=== PATIENT | female | born 1995 | race Caucasian/White ===

== ENCOUNTER 2017-04-22 15:07 | Emergency (ER) | payer MEDICAID, OTHER ==
[~2017-04-22] VITALS: Ht 154.9 cm; Wt 53.0 kg
[~2017-04-22 15:07] MED LIST: NOVOLOGP2 SQ
[2017-04-22 15:09] VITALS: BP 134/92; PULSE 112; RESP 14; TEMP 97.9; O2SAT 100
[2017-04-22] MEDS ORDERED: HYDR-3516 PO (15:44)
[2017-04-22] MEDS ORDERED: NOVOLOGP2 SQ (15:44)
[2017-04-22] MEDS ORDERED: LANTUS2P SQ (15:44)
[2017-04-22] MEDS ORDERED: IBUP-232 PO (15:44)
[2017-04-22] MEDS ORDERED: NIFE1TAB85 PO (15:44)
[2017-04-22] MEDS ORDERED: SODIUM CHLOR 0.9% 1000 ML INJ 1,000 ML IV SCH (15:49)
[2017-04-22] MEDS ORDERED: ONDANSETRON HCL 4 MG/2 ML VIAL IV PUSH ONE (16:00)
--- NOTE | 2017-04-22 16:05 | PD ---
HPI Chief Complaint: Chest Pain Time Seen by Provider: 15:24 Travel History International Travel<30 days: No Contact w/Intl Traveler<30days: No Traveled to known affect area: No History of Present Illness HPI 22-year-old female presents for evaluation. She reports a 4 weeks ago she underwent vaginal delivery at [facility]. For the past 4 weeks she has been having pain in the left foot plantar aspect that radiates into the left. Pain is a sharp pain which is constant but worse when walking. Over the past week she has been experiencing pain in her pelvic region with associated vaginal bleeding. She reports that she has been passing large clots. She denies any nausea, vomiting, chest pain, shortness of breath, fevers, chills, cough, congestion, flank pain. She has had difficulty with urination. She has no other complaints at this time. PFSH Past Medical History Blood Disorders: No Anxiety: Yes Depression: Yes Cardiovascular Problems: Yes (HTN) Developmental Delay: No Diabetes: Yes Patient Takes Glucophage: No Diminished Hearing: No Gastrointestinal Disorders: No Genitourinary: No Headaches: Yes Musculoskeletal: No Neurologic: Yes Psychiatric: Yes Respiratory: No Integumentary: Yes Immunizations Current: Yes ?: Not : 1 Para: 1 Ovarian Cysts: Yes Past Surgical History Tympanostomy Tube: Yes Other Surgery: No Social History Alcohol Use: Yes (SOCIALLY) Tobacco Use: Yes (1 1/2PPD) Substance Use: No Allergies-Medications (Allergen,Severity, Reaction): Coded Allergies: No Known Allergies (Verified Adverse Reaction, Unknown, 04/22/17) Reported Meds & Prescriptions Reported Meds & Active Scripts Active Percocet (Oxycodone-Acetaminophen) 5-325 mg Tab 1 Tab PO Q6H PRN Reported Ibuprofen 600 Mg Tab 600 Mg PO Q8H PRN Hydrocodone-Acetamin 5-325 mg (Hydrocodone/Acetaminophen) 5 Mg-325 Mg Tablet 1 Tab PO Q6HR PRN Lantus Inj (Insulin Glargine) 1,000 Unit/10 Ml Vial 17 Units SQ HS Novolog Inj (Insulin Aspart) 1,000 Unit/10 Ml Vial 0 SQ DIRECTED Sliding Scale as directed. Procardia XL (Nifedipine) 30 Mg Tab 30 Mg PO DAILY Review of Systems Except as stated in HPI: all other systems reviewed are Neg Physical Exam Narrative GENERAL: Well-developed well-nourished female no acute distress SKIN: Warm and dry. HEAD: Atraumatic. Normocephalic. EYES: Pupils equal and round. No scleral icterus. No injection or drainage. ENT: No nasal bleeding or discharge. Mucous membranes pink and moist. NECK: Trachea midline. No JVD. CARDIOVASCULAR: Regular rate and rhythm. No murmur appreciated. RESPIRATORY: No accessory muscle use. Clear to auscultation. Breath sounds equal bilaterally. GASTROINTESTINAL: Abdomen soft, tender to palpation in the lower quadrants without guarding. Pelvic examination the presence of a female nurse: There is brown/thin sharma discharge noted in the vaginal canal. These were sent for wet prep and GC probe. MUSCULOSKELETAL: There is tenderness to palpation to the left calf and left foot with no obvious deformities. Her pain is primarily on the along the plantar aspect of left foot. There is pain with even light touch of the skin. There is no lower extremity edema. 2+ dorsalis pedis pulse bilaterally. NEUROLOGICAL: Awake and alert. No obvious cranial nerve deficits. Motor grossly within normal limits. Normal speech. PSYCHIATRIC: Appropriate mood and affect; insight and judgment normal. Data Data Last Documented VS Vital Signs Date Time Temp Pulse Resp B/P (MAP) Pulse Ox O2 Delivery O2 Flow Rate FiO2 04/22/17 15:09 97.9 112 14 134/92 (106) 100 Orders Orders Electrocardiogram (04/22/17 ) Complete Blood Count With Diff (04/22/17 15:49) Basic Metabolic Panel (Bmp) (04/22/17 15:49) Urinalysis - C+S If Indicated (04/22/17 15:49) Iv Access Insert/Monitor (04/22/17 15:49) Act Partial Throm Time (Ptt) (04/22/17 15:49) Prothrombin Time / Inr (Pt) (04/22/17 15:49) Us Leg Venous Doppler (04/22/17 15:49) Ondansetron Inj (Zofran Inj) (04/22/17 16:00) Sodium Chlor 0.9% 1000 Ml Inj (Ns 1000 M (04/22/17 15:49) Foot, Complete ([id number]) (04/22/17 ) Us Pelvis Comp W Doppler (04/22/17 15:53) Gc And Chlamydia Pcr (04/22/17 16:35) Wet Prep Profile (04/22/17 16:35) Chest, Single Ap (04/22/17 ) Misoprostol (Cytotec) (04/22/17 18:00) Labs Laboratory Tests Test 04/22/17 16:00 04/22/17 16:45 04/22/17 17:25 White Blood Count 7.5 TH/MM3 Red Blood Count 3.78 MIL/MM3 Hemoglobin 11.4 GM/DL Hematocrit 33.6 % Mean Corpuscular Volume 88.9 FL Mean Corpuscular Hemoglobin 30.1 PG Mean Corpuscular Hemoglobin Concent 33.9 % Red Cell Distribution Width 16.4 % Platelet Count 196 TH/MM3 Mean Platelet Volume 10.4 FL Neutrophils (%) (Auto) 51.0 % Lymphocytes (%) (Auto) 35.4 % Monocytes (%) (Auto) 5.6 % Eosinophils (%) (Auto) 7.7 % Basophils (%) (Auto) 0.3 % Neutrophils # (Auto) 3.8 TH/MM3 Lymphocytes # (Auto) 2.7 TH/MM3 Monocytes # (Auto) 0.4 TH/MM3 Eosinophils # (Auto) 0.6 TH/MM3 Basophils # (Auto) 0.0 TH/MM3 CBC Comment DIFF FINAL Differential Comment Prothrombin Time 10.6 SEC Prothromb Time International Ratio 1.0 RATIO Activated Partial Thromboplast Time 27.2 SEC Blood Urea Nitrogen 8 MG/DL Creatinine 0.71 MG/DL Random Glucose 351 MG/DL Calcium Level 9.1 MG/DL Sodium Level 136 MEQ/L Potassium Level 4.4 MEQ/L Chloride Level 103 MEQ/L Carbon Dioxide Level 25.8 MEQ/L Anion Gap 7 MEQ/L Estimat Glomerular Filtration Rate 102 ML/MIN Clue Cells (Wet Prep) NONE SEEN Vaginal Trichomonas (Wet Prep) NONE SEEN Vaginal Yeast (Wet Prep) NONE SEEN Urine Color LIGHT-YELLOW Urine Turbidity CLEAR Urine pH 6.5 Urine Specific [place] 1.017 Urine Protein NEG mg/dL Urine Glucose (UA) 1000 mg/dL Urine Ketones 40 mg/dL Urine Occult Blood MOD Urine Nitrite NEG Urine Bilirubin NEG Urine Urobilinogen LESS THAN 2.0 MG/DL Urine Leukocyte Esterase MOD Urine RBC 2 /hpf Urine WBC 5 /hpf Urine Squamous Epithelial Cells 1 /hpf Microscopic Urinalysis Comment CULT NOT INDICATED MDM Medical Decision Making Medical Screen Exam Complete: Yes Emergency Medical Condition: Yes Medical Record Reviewed: Yes Differential Diagnosis Post delivery pelvic pain versus endometritis versus acute anemia versus DVT versus peripheral neuropathy versus plantar fasciitis Narrative Course 22-year-old female presents with left foot and leg pain as well as pelvic pain, vaginal bleeding. As noted above. She will also during examination reports intermittent chest pain that is worse when she is lying down but none currently. Currently her only pain is in her lower abdomen and left foot and leg. Plan is for basic lab work, left foot x-ray, ultrasound of both legs, ultrasound of the pelvis. She will be given IV fluids, Toradol. CONCLUSION: Inhomogeneous and thickened endometrial stripe possibly retained products of conception. Left foot x-ray unremarkable, ultrasound left leg unremarkable, blood prep negative, discussed with on-call behavioral health therapist who recommends 800 mcg dose of rectal Cytotec and repeat ultrasound imaging in 2-3 days. Discussed these recommendations with the patient is agreeable. She will be discharged with a short course of Percocet. Diagnosis Primary Impression: Retained products of conception, Additional Impression: Left leg pain Referrals: [facility] Additional Instructions: as discussed, follow-up with your previous behavioral health therapist or at [facility] care center in 2-3 days for repeat ultrasound imaging and continuation of your medical care. Return for any emergent medical conditions. Med/Other Pt SpecificInfo: Prescription(s) given Scripts Oxycodone-Acetaminophen (Percocet) 5-325 mg Tab 1 TAB PO Q6H Y for PAIN, #6 TAB 0 Refills Prov: Linda Doe MD 04/22/17 Disposition: 01 DISCHARGE HOME Condition: Stable Sang Cunningham Apr 22, 2017 16:05
[2017-04-22 16:24] LABS: AUTOMATED NEUTROPHIL # 3.8 TH/MM3 (1.8-7.7); BASOPHIL % 0.3 % (0.0-2.0); EOSINOPHIL # 0.6 TH/MM3 (0-0.4); EOSINOPHIL % 7.7 % (0.0-4.0); HEMATOCRIT 33.6 % (35.0-46.0); HEMOGLOBIN 11.4 GM/DL (11.6-15.3); LYMPH % 35.4 % (9.0-44.0); LYMPHOCYTE # 2.7 TH/MM3 (1.0-4.8); MEAN CELL VOLUME 88.9 FL (80.0-100.0); MEAN CORPUSCULAR HEMOGLOBIN 30.1 PG (27.0-34.0); MEAN CORPUSCULAR HGB CONC 33.9 % (32.0-36.0); MEAN PLATELET VOLUME 10.4 FL (7.0-11.0); MONO % 5.6 % (0.0-8.0); MONOCYTE # 0.4 TH/MM3 (0-0.9); PLATELET COUNT 196 TH/MM3 (150-450); RED BLOOD COUNT 3.78 MIL/MM3 (4.00-5.30); RED CELL DISTRIBUTION WIDTH 16.4 % (11.6-17.2); WHITE BLOOD COUNT 7.5 TH/MM3 (4.0-11.0)
--- NOTE | 2017-04-22 16:26 | RADRPT ---
EXAM DATE/TIME: 04/22/2017 16:10 [facility] COMPARISON: No previous studies available for comparison. INDICATIONS : Foot pain and swelling with no known injury. MEDICAL HISTORY : None. SURGICAL HISTORY : None. ENCOUNTER: Initial ACUITY: 3 days PAIN SCORE: 10/10 LOCATION: Left Foot. FINDINGS: No definite fractures, or dislocations are identified. No definite lytic or sclerotic lesion is seen . The joint spaces are well maintained. CONCLUSION: Unremarkable study. Kev Bridges MD on April 22, 2017 at 16:23 Board Certified Radiologist. This report was verified electronically.
[2017-04-22 16:33] LABS: PROTHROMBIN TIME - PATIENT 10.6 SEC (9.8-11.6)
[2017-04-22 16:37] LABS: BICARBONATE 25.8 MEQ/L (21.0-32.0); CALCIUM 9.1 MG/DL (8.5-10.1); CREATININE 0.71 MG/DL (0.50-1.00)
--- NOTE | 2017-04-22 17:15 | RADRPT ---
EXAM DATE/TIME: 04/22/2017 16:37 [facility] COMPARISON: No previous studies available for comparison. INDICATIONS : Left leg pain. MEDICAL HISTORY : Hypertension. . Ovarian cysts. Diabetes. Depression. Anxiety. SURGICAL HISTORY : Tympanostomy tubes. ENCOUNTER: Initial ACUITY: 1 month PAIN SCORE: 7/10 LOCATION: Left leg. TECHNIQUE: Venous ultrasound of the leg was performed from the inguinal ligament to the proximal calf. Real-paulette e, color Doppler and spectral tracing, compression and augmentation techniques were used. FINDINGS: There is normal compressibility of the deep venous system from the inguinal region to the proximal ca lf. No echogenic clot is seen in the lumen of the common femoral, femoral, popliteal, and posterior tibial veins. There is a normal response of the venous system to proximal and distal augmentation an d respiration. CONCLUSION: Normal examination. Kev Bridges MD on April 22, 2017 at 17:12 Board Certified Radiologist. This report was verified electronically.
--- NOTE | 2017-04-22 17:35 | RADRPT ---
EXAM DATE/TIME: 04/22/2017 16:48 [facility] COMPARISON: No previous studies available for comparison. INDICATIONS : Pelvic pain and bleeding post vaginal delivery 4 weeks ago. MEDICAL HISTORY : Hypertension. . Diabetes. Ovarian cysts. Depression. Anxiety. SURGICAL HISTORY : Tympanostomy tubes. ENCOUNTER: Initial ACUITY: 1 month PAIN SCORE: 7/10 LOCATION: Bilateral pelvis MEASUREMENTS: UTERUS: 10.1 x 7.6 x 5.3 cm ENDOMETRIAL STRIPE: >20 mm RIGHT OVARY: 3.4 x 2.2 x 1.8 cm LEFT OVARY: 2.9 x 2.3 x 1.7 cm FINDINGS: The endometrial stripe measures thickened and heterogeneous possibly retained products of conception, however nonspecific. The adnexa is unremarkable. There is no free fluid. CONCLUSION: Inhomogeneous and thickened endometrial stripe possibly retained products of conception. Kev Bridges MD on April 22, 2017 at 17:32 Board Certified Radiologist. This report was verified electronically.
[2017-04-22 17:48] LABS: BILIRUBIN, URINE NEG (NEG); BLOOD, URINE MOD (NEG); GLUCOSE,URINE 1000 mg/dL (NEG); KETONE, URINE 40 mg/dL (NEG); NITRITE,URINE NEG (NEG); PH, URINE 6.5 (5.0-8.5); SQUAMOUS EPITHELIAL CELL URINE 1 /hpf (0-5); URINE COLOR LIGHT-YELLOW (YELLW/STRAW); URINE LEUKOCYTE ESTERASE MOD (NEG)
[2017-04-22 18:00] VITALS: BP 109/64; PULSE 71; RESP 18; O2SAT 98
[2017-04-22] MEDS ORDERED: MISOPROSTOL 200 MCG TAB RECTAL ONE (18:00)
[2017-04-22] MEDS ORDERED: PERC5TAB12 PO (18:06)
--- NOTE | 2017-04-22 18:25 | RADRPT ---
EXAM DATE/TIME: 04/22/2017 17:28 [facility] COMPARISON: CHEST SINGLE AP, March 16, 2009, 19:03. INDICATIONS : Chest Pain MEDICAL HISTORY : Hypertension. . Diabetes. Ovarian cysts. Depression. Anxiety SURGICAL HISTORY : Tympanostomy tubes ENCOUNTER: Initial ACUITY: 1 day PAIN SCORE: 5/10 LOCATION: chest FINDINGS: The lungs are clear without infiltrate, nodule, or mass. There is no appreciable pleural effusion fo r technique. Heart and mediastinum are unremarkable. CONCLUSION: No acute cardiopulmonary disease. Kev Bridges MD on April 22, 2017 at 18:22 Board Certified Radiologist. This report was verified electronically.
--- NOTE | 2017-04-23 22:15 | EKG ---
Date Performed: 04/22/2017 Time Performed: 15:43:59 PTAGE: 22 years EKG: Sinus rhythm NORMAL ECG NO PREVIOUS TRACING DOCTOR: Eulalio Watkins Interpretating Date/Time 04/23/2017 22:05:45
== END 2017-04-22 19:20 | disposition home or self-care (01) ==
LOC: NEPC 15:07
DX: O72.2 Delayed and secondary postpartum hemorrhage (principal); M79.605 Pain in left leg; M79.672 Pain in left foot; R10.2 Pelvic and perineal pain; R07.9 Chest pain, unspecified; F41.9 Anxiety disorder, unspecified; F32.9 Major depressive disorder, single episode, unspecified; I10 Essential (primary) hypertension; E11.9 Type 2 diabetes mellitus without complications
CPT/HCPCS: 71045; 73630; 76856; 80048; 81001; 85025; 85610; 85730; 87210; 87491; 87591; 93005; 93971; 93975; 96361; 96374; 99285; J2405; J7030